=== PATIENT | female | born 1975 | race Caucasian/White ===

== ENCOUNTER 2016-08-06 15:13 | Emergency (ER) | payer OTHER ==
--- NOTE | ~2016-08-06 | CT2 ---
[facility] A Service of [facility] RADIOLOGY TEXT RESULTS PATIENT: ESPINOZA WALL LOCATION: SED : 79 UNIT #: [id number] AGE: [address]: RIK BARBOSA SEX: F ORDER DR: [id number] [address] [address] [id number] E MR#: [id number] Acc #: [id number] NAME: ESPINOZA WALL : 1975 SEX: F STUDY DATE/TIME: 08/06/2016 18:09 UNIT: SED ROOM: STUDY DESCRIPTION: CT Abd and Pelv W Cont Attending Physician: Rik Barbosa Ordering Physician: Chester Hood M.D. Primary Care Physician: Mando Markham M.D. MEDICAL IMAGING REPORT This report is preliminary unless electronic signature is present. EXAM CT of the abdomen and pelvis with IV contrast media HISTORY Vomiting, diarrhea, body aches and weakness since 08/02/2016. TECHNIQUE Axial imaging of the abdomen and pelvis was performed with IV contrast media. This CT examination was performed with one or more of the following radiation dose reduction techniques: automatic exposure control, adjustment of mA and/or kV according to patient size, and iterative reconstruction. FINDINGS Lung bases in this patient are clear. Scans through the liver parenchyma are normal. The gallbladder is contracted and appears normal. Spleen is of normal size. The adrenal glands are normal and the pancreas is normal. Both the right and left kidney have a normal appearance. There is no evidence of hydronephrosis or hydroureter. There is no evidence of ureteral dilatation or ureteral stones. The bladder is normal. No dilated or thickened loops of bowel are seen. The appendix is normal. There are bilateral clips in place in the adnexal region. There is trace free fluid in the cul-de-sac. This can be seen physiologically. No adnexal masses or fluid collections are identified. CONCLUSION Small amount of free fluid within the cul-de-sac region. This can be seen physiologically. CT of the abdomen and pelvis appears otherwise normal. Dictated by... Rik Kenny M.D. [facility] A Service of [facility] RADIOLOGY TEXT RESULTS PATIENT: ESPINOZA WALL LOCATION: SED : 79 UNIT #: [id number] AGE: [address]: RIK BARBOSA SEX: F ORDER DR: THIS IS AN ELECTRONICALLY VERIFIED REPORT Rik Kenny M.D. at 08/09/2016 7:26 AM ZONIA/nico TD: 08/09/2016 07:18 JOB #: [id number] MEDICAL IMAGING REPORT Page 1 of 1
[~2016-08-06 15:13] MED LIST: CELEXA PO; HYDROCODON-ACE1 EAC7 PO; LAMICTAL PO; LEVAQUIN250 MG PO; LEXAPRO PO; NORCO 5/325 TAB1 TAB PO; PHENERGAN25 MG PO; VISTARIL PO; VOLTAREN50 MG PO
[2016-08-06 17:27] LABS: URINE SOURCE CLEAN CATCH
[2016-08-06 17:29] LABS: URINE APPEARANCE CLEAR; URINE BILIRUBIN NEG (NEG); URINE BLOOD 3+ (NEG); URINE COLOR YELLOW; URINE GLUCOSE NEG (NORM); URINE KETONE NEG (NEG); URINE LEUKOCYTE ESTERASE NEG (NEG); URINE NITRATE NEG (NEG); URINE PH 6.5 (5-8); URINE PROTEIN NEG (NEG); URINE UROBILINOGEN 0.2 MG/DL (NORM)
[2016-08-06 17:35] LABS: BASOPHIL% 0.2 % (0-2.5); EOSINOPHIL% 0.1 % (0.0-7.0); HEMATOCRIT 42.1 % (35.0-45.0); HEMOGLOBIN 14.5 gm/dL (12.0-16.0); LYMPHOCYTE# 1.3 X10e3 (1.0-3.5); LYMPHOCYTE% 18.5 % (17.0-45.0); MEAN CELL VOLUME 84.1 FL (83-96); MEAN CORPUSCULAR HGB CONC 34.5 g/dL (30-36); MEAN PLATELET VOLUME 8.6 FL (6.5-11.5); MONOCYTE# 0.4 X10e3 (0-1.0); MONOCYTE% 5.5 % (3.0-12.0); NEUTROPHIL# 5.5 X10e3 (1.5-7.1); NEUTROPHIL% 75.7 % (40-75); PLATELET COUNT 218 X10e3 (140-420); RED BLOOD COUNT 5.01 X10e (3.90-5.30); RED CELL DISTRIBUTION WIDTH 13.8 % (11.0-15.5); WHITE BLOOD COUNT 7.2 X10e3 (4.0-10.5)
[2016-08-06 17:44] LABS: MICRO INDICATED? YES
[2016-08-06 17:45] LABS: CULTURE INDICATED? NO; URINE BACTERIA NEG (NEG); URINE WBC 0-2 /[HPF] (0-5)
[2016-08-06 17:47] LABS: DIFF IND NO
[2016-08-06 17:54] LABS: ALBUMIN SERUM 4.2 g/dL (3.5-5.0); BILIRUBIN, DIRECT 0.1 mg/dL (0.0-0.2); BILIRUBIN,INDIRECT 0.4 mg/dL (0.0-0.9); BILIRUBIN,TOTAL 0.5 mg/dL (0.2-2.0); BUN/CREATININE RATIO 17.14; CALCIUM SERUM 9.1 mg/dL (8.4-10.2); CREATININE SERUM 0.7 mg/dL (0.6-1.4); GLOM FILT RATE Estimated 109.9 mL/min (>60); POTASSIUM 3.1 mmol/L (3.5-5.1); PROTEIN TOTAL SERUM 7.4 g/dL (6.0-8.3)
[2016-08-06 18:30] LABS: AMPHETAMINE NEG (NEG); BARBITURATES NEG (NEG); BENZODIAZEPINES NEG (NEG); COCAINE NEG (NEG); MARIJUANA POS (NEG); OPIATES NEG (NEG); TRICYCLIC ANTIDEPRESSANTS NEG (NEG); U METHADONE NEG (NEG)
[2016-08-09 03:08] LABS: CHLAMYDIA TRACH Not Detected (Not Detected); N GONOR Not Detected (Not Detected)
== END 2016-08-06 19:40 | disposition home or self-care (01) ==
LOC: SED 15:13
PROVIDERS: Nurse Practitioner
DX: N73.9 Female pelvic inflammatory disease, unspecified (principal); R11.2 Nausea with vomiting, unspecified; F17.210 Nicotine dependence, cigarettes, uncomplicated; Z88.1 Allergy status to other antibiotic agents; Z88.0 Allergy status to penicillin; Z87.442 Personal history of urinary calculi
CPT/HCPCS: 36415; 74177; 80048; 80076; 80307; 81003; 83690; 84703; 85025; 87210; 87491; 87591; 87808; 87905; 96372; 96374; 96375; 99284; J0696; J1885; Q9967